=== PATIENT | female | born 1995 | race Caucasian/White ===

== ENCOUNTER 2020-09-19 15:09 | Emergency (ER) | payer OTHER ==
[2020-09-19] MEDS ORDERED: ZOFRAN4 MG PO (19:13)
== END 2020-09-19 19:40 | disposition home or self-care (01) ==
LOC: ER1 15:09
DX: B34.9 Viral infection, unspecified (principal); Z20.822 Contact with and (suspected) exposure to COVID-19; Z88.6 Allergy status to analgesic agent
CPT/HCPCS: 99284; U0002

== ENCOUNTER 2021-02-25 16:14 | Emergency (ER) | payer OTHER ==
[~2021-02-25 16:14] MED LIST: ZOFRAN4 MG PO
[2021-02-25] MEDS ORDERED: NAPROSYN EC 50500 MG PO (17:28)
[2021-02-25] MEDS ORDERED: AUGMENTIN 875-1 EACH PO (17:28)
== END 2021-02-25 17:36 | disposition home or self-care (01) ==
LOC: ER1 16:14
DX: R68.84 Jaw pain (principal); Z88.8 Allergy status to other drugs, medicaments and biological substances
CPT/HCPCS: 99283

== ENCOUNTER 2021-12-30 14:31 | Emergency (ER) | payer OTHER ==
[~2021-12-30 14:31] MED LIST changes: +AUGMENTIN 875-1 EACH PO; +NAPROSYN EC 50500 MG PO
[2021-12-30 15:29] LABS: HEMOGLOBIN 13.6 gm/dl (12.3-15.3); RED BLOOD COUNT 4.5 M/UL (4.00-5.10); WHITE BLOOD COUNT 13.2 K/UL (4.5-11.0)
[2021-12-30 16:07] LABS: BUN/CREATININE RATIO 14 (0-10)
[2021-12-30] MEDS ORDERED: CLINDAMYCIN HC300 MG PO (19:06)
[2021-12-30] MEDS ORDERED: IBUPROFEN800 MG PO (19:06)
[2021-12-30] MEDS ORDERED: HYDROCODON-ACE1 EAC4 PO (19:06)
== END 2021-12-30 19:19 | disposition home or self-care (01) ==
LOC: ER1 14:31
PROVIDERS: Physician Assistant Medical
DX: K02.9 Dental caries, unspecified (principal); K04.7 Periapical abscess without sinus
CPT/HCPCS: 70487; 80053; 85025; 96365; 99283; Q9967